=== PATIENT | female | born 1975 | race Caucasian/White ===

== ENCOUNTER 2017-05-30 16:16 | Outpatient (CLI) | payer BC | END 2017-05-30 16:17 | disposition home or self-care (01) | LOC: BICRAD 16:16 | PROVIDERS: ATTEND Chiropractor | DX: M54.2 Cervicalgia (principal); M54.5 Low back pain; M47.816 Spondylosis without myelopathy or radiculopathy, lumbar region; M47.814 Spondylosis without myelopathy or radiculopathy, thoracic region; M47.812 Spondylosis without myelopathy or radiculopathy, cervical region; M41.86 Other forms of scoliosis, lumbar region; M41.84 Other forms of scoliosis, thoracic region | CPT/HCPCS: 72040; 72070; 72100 ==

== ENCOUNTER 2017-09-11 09:28 | Emergency (ER) | payer BC ==
[2017-09-11] MEDS ORDERED: Acetaminophen 500 MG TAB ONE (10:20)
--- NOTE | 2017-09-11 11:18 | CT ---
CT BRAIN: HISTORY: Syncope. Patient with history of fall anxiety. TECHNIQUE: Noncontrast enhanced CT images of the brain are obtained. FINDINGS: Images demonstrate the brain to be unremarkable. No evidence of intracranial masses, hemorrhages, st rokes, or contusions seen. The ventricles are of normal size. IMPRESSION: Normal CT brain. POS: [facility]
--- NOTE | 2017-09-11 11:19 | CT ---
CT CERVICAL SPINE: HISTORY: Syncope. Fall. TECHNIQUE: Noncontrast enhanced CT images of the cervical spine are obtained. Sagittal and coronal reconstructe d images are performed. FINDINGS: CT images of the cervical spine demonstrate no evidence of an acute cervical spine fracture, subluxat ions, or bony lesions. Vertebral bodies and facets are unremarkable. IMPRESSION: Normal CT cervical spine. POS: [facility]
--- NOTE | 2017-09-11 11:26 | RAD ---
CHEST ONE VIEW: HISTORY: Syncope. COMPARISON: None. FINDINGS: The lungs are clear without pneumothorax or effusion. The cardiac silhouette and mediastinal contour s are within normal limits. IMPRESSION: No acute intrathoracic abnormality. POS: OFF
== END 2017-09-11 10:54 | disposition home or self-care (01) ==
LOC: ERS 09:28
DX: R55 Syncope and collapse (principal); F41.9 Anxiety disorder, unspecified; F32.9 Major depressive disorder, single episode, unspecified
CPT/HCPCS: 70450; 71045; 72125; 93005